=== PATIENT | female | born 1960 | race Caucasian/White ===

== ENCOUNTER 2020-06-20 15:22 | Observation (INO) ==
[2020-06-20] MEDS ORDERED: 0.9 % Sodium Chloride 1,000 ML IVC ONE ×2 (15:32→16:48)
[2020-06-20] MEDS ORDERED: *HR* FentaNYL (PF) 100 MCG/2 ML VIAL IVP ONE (15:33)
[2020-06-20 16:16] LABS: INR 1.4; Prothrombin Time 16.3 Seconds (9.4-12.1)
[2020-06-20 16:17] LABS: Hematocrit 32.3 % (35.3-44.9); Hemoglobin 10.1 g/dL (11.5-15.4); Mean Corpuscular HGB Conc 31.3 g/dL (31.6-35.5); Mean Corpuscular Hemoglobin 26.6 pg (28.0-33.3); Mean Platelet Volume 9.7 fL (9.4-12.4); Platelet Count 335 K/mcL (140-400); Red Cell Distribution Width 15.1 % (11.5-14.5)
[2020-06-20 16:19] LABS: Activated Partial Thrombo Time 29.9 Seconds (26.0-36.0); White Blood Count 30.2 K/mcL (4.3-11.1)
[2020-06-20 16:26] LABS: Calcium 8.3 mg/dL (8.6-10.3)
[2020-06-20 16:28] LABS: Lymphocytes # 0.6 K/mcL (0.6-4.6); Monocytes # 0.6 K/mcL (0.0-1.3)
[2020-06-20 17:31] LABS: Albumin 3.2 g/dL (3.5-5.7); Albumin/Globulin Ratio 0.8 (1.1-2.2); Bilirubin,Indirect 0.3 mg/dL (0.0-1.0); Bilirubin,Total 0.3 mg/dL (0.3-1.0); Total Protein 7.2 g/dL (6.4-8.9)
[2020-06-20 18:10] LABS: Bilirubin,Urine Negative (Negative); Blood,Urine Moderate (Negative); Clarity,Urine Cloudy (Clear); Glucose,Urine (UA) Normal (Normal); Ketones,Urine Negative (Negative); Leukocyte Esterase,Urine Negative (Negative); Nitrite,Urine Negative (Negative); PH,Urine 5.5 pH Units (5.0-8.0); Protein,Urine >=300 mg/dL (Neg-Trace); Urobilinogen,Urine Normal (Normal)
[2020-06-20 18:14] LABS: Color,Urine Light-Yellow (Yellow)
[2020-06-20 18:16] LABS: Amorphous Sediment,Urine Many per hpf (None-Few); Bacteria,Urine Moderate per hpf (None-Few); Mucus,Urine Few per lpf (None-Few); WBC,Urine 0-3 per hpf (0-3)
[2020-06-20] MEDS ORDERED: Naloxone 0.4 MG/ML INJ IVP PRN (18:28)
[2020-06-20] MEDS ORDERED: Acetaminophen 325 MG TABLET PO PRN (18:28)
[2020-06-20] MEDS ORDERED: Melatonin 3 MG TABLET PO PRN (18:28)
[2020-06-20] MEDS ORDERED: Ondansetron 4 MG/2 ML VIAL IVP PRN (18:28)
[2020-06-20] MEDS ORDERED: Ringers Solution, Lactated 1,000 ML IVC SCH (18:30)
[2020-06-20] MEDS ORDERED: *HR* Dextrose 50 % in Water (Vial) 50 ML VIAL IVP PRN (18:50)
[2020-06-20] MEDS ORDERED: Dextrose Gel 15 GM/37.5 ML TUBE PO PRN ×2 (18:50)
[2020-06-20] MEDS: *HR* LORazepam 2 MG/ML VIAL IVP ONE ×3 (18:50→19:43)
[2020-06-20] MEDS ORDERED: D5% in Water 1,000 ML IVC PRN (18:50)
[2020-06-20] MEDS ORDERED: *HR* LORazepam 2 MG/ML VIAL IVP ONE (19:34)
[2020-06-20 20:12] VITALS: BP 164/92
[2020-06-20] MEDS ORDERED: Gabapentin 300 MG CAPSULE PO SCH (21:00)
[2020-06-20] MEDS ORDERED: Mycophenolate Sodium (DR) 180 MG TABLET.DR PO SCH (21:00)
[2020-06-20] MEDS ORDERED: Famotidine 20 MG TABLET PO SCH (21:00)
[2020-06-20] MEDS ORDERED: atenoloL 50 MG TABLET PO SCH (21:00)
[2020-06-20] MEDS ORDERED: CycloSPORINE, Mod (Neoral) 25 MG CAPSULE PO SCH (21:00)
[2020-06-20] MEDS ORDERED: Acetaminophen IV 500 MG/50 ML BAG IVPB ONE (21:16)
[2020-06-20] MEDS ORDERED: Vancomycin 1 EACH in 0.9 % Sodium Chloride 250 ML IVPB PRN (22:00)
[2020-06-20] MEDS: Ringers Solution, Lactated 1,000 ML IVC ONE ×2 (22:15→23:23)
[2020-06-21] MEDS ORDERED: Insulin LISPRO 300 UNITS/3 ML VIAL SUBQ SCH (07:30)
[2020-06-21] MEDS ORDERED: calcitrioL 0.25 MCG CAPSULE PO SCH (09:00)
[2020-06-21] MEDS ORDERED: lisinopriL 10 MG TABLET PO SCH (09:00)
[2020-06-21] MEDS ORDERED: polyethylene glycoL 3350 17 GM POWD.PACK PO SCH (09:00)
[2020-06-21] MEDS ORDERED: amLODIPine 5 MG TABLET PO SCH (09:00)
[2020-06-21] MEDS ORDERED: *HR* SitaGLIPtin 25 MG TABLET PO SCH (09:00)
[2020-06-21 09:51] LABS: Enterococcus by PCR Not Detected (Not Detect); mecA Methicillin-Resist Gene Not Detected (Not Detect)
[2020-06-21 09:52] LABS: Acinetobacter baumannii by PCR Not Detected (Not Detect); Candida albicans by PCR Not Detected (Not Detect); Candida glabrata by PCR Not Detected (Not Detect); Candida krusei by PCR Not Detected (Not Detect); Candida parapsilosis by PCR Not Detected (Not Detect); Candida tropicalis by PCR Not Detected (Not Detect); Enterobacter cloacae Cmplx PCR Not Detected (Not Detect); Enterobacteriaceae by PCR Not Detected (Not Detect); Escherichia coli by PCR Not Detected (Not Detect); Klebsiella oxytoca by PCR Not Detected (Not Detect); Klebsiella pneumoniae by PCR Not Detected (Not Detect); Proteus by PCR Not Detected (Not Detect); Pseudomonas aeruginosa by PCR Not Detected (Not Detect); Serratia marcescens by PCR Not Detected (Not Detect); Staphylococcus aureus by PCR DETECTED (Not Detect); Streptococcus agalactiae(B)PCR Not Detected (Not Detect); Streptococcus by PCR Not Detected (Not Detect); Streptococcus pneumoniae PCR Not Detected (Not Detect); Streptococcus pyogenes (A) PCR Not Detected (Not Detect)
[2020-06-21] MEDS ORDERED: cefTRIAXone 2,000 MG in 0.9 % Sodium Chloride Mini Bag 100 ML IVPB SCH (18:00)
== END 2020-06-21 00:01 | disposition short-term general hospital (02) ==
LOC: EMEROOPIK 15:22 → INPPIK 15:22
PROVIDERS: ADMIT Family Medicine; ATTEND Family Medicine